=== PATIENT | male | born 1960 | race Caucasian/White ===

== ENCOUNTER 2016-08-06 15:05 | Emergency (ER) | payer MEDICAID ==
[2016-08-06 15:12] VITALS: TEMP 97.5
[2016-08-06] MEDS ORDERED: NS 1,000 ML IV ONE (15:25)
[2016-08-06 15:51] LABS: % IMMATURE GRANULYOCYTES 0.3 % (0.0-1.1); ABSOLUTE IMMATURE GRANULOCYTES 0.02 10^3/uL (0.00-0.10); ADD DIFF? NO; ADD MORPH? NO; ADD SCAN? NO; ATYPICAL LYMPHOCYTE FLAG 10 (0-99); FRAGMENT RBC FLAG 0 (0-99); HEMATOCRIT 43.3 % (40.0-51.0); HEMOGLOBIN 15.5 g/dL (13.7-17.5); LEFT SHIFT FLG 0 (0-99); LIPEMIA HEMOLYSIS FLAG 90 (0-99); MEAN CELL HEMOGLOBIN 31.5 pg (27.9-34.1); MEAN CELL HEMOGLOBIN CONCENTR. 35.8 g/dL (32.4-36.7); PLATELET CLUMPS FLAG 10 (0-99); PLATELET COUNT 221 10^3/uL (150-400); RED BLOOD CELL COUNT 4.92 10^6/uL (4.40-6.38); RED CELL DISTRIBUTION WIDTH 11.9 % (11.5-15.2)
[2016-08-06 15:52] LABS: COLOR YELLOW; LEUKOCYTE ESTERASE,URINE NEGATIVE (NEGATIVE); NITRITE,URINE NEGATIVE (NEGATIVE)
[2016-08-06 16:21] LABS: ANION GAP 11 mEq/L (8-16); CALCIUM 9.3 mg/dL (8.5-10.4); CARBON DIOXIDE 25 mEq/l (22-31); CHLORIDE 104 mEq/L (97-110); CREATININE 1.1 mg/dL (0.7-1.3); GLOMERULAR FILTRATION RATE > 60; GLUCOSE 73 mg/dL (70-100); POTASSIUM 4.4 mEq/L (3.5-5.2); SODIUM 140 mEq/L (134-144)
--- NOTE | 2016-08-06 16:28 | EDPHY ---
H & P Stated Complaint: l flank/l hip pain no trauma Time Seen by Provider: 08/06/16 15:25 HPI/ROS: CHIEF COMPLAINT: Left flank pain HISTORY OF PRESENT ILLNESS: 55-year-old male presents emergency department complaining of left flank pain for 1.5 months. Patient reports that is gradually getting worse. Describes the pain as a cramping and aching. Worse with movement, worse with bending over. Patient reports a history of a lumbar herniated disc, he reports this pain is different. He denies saddle anesthesias , no loss of control of his bowel or bladder, no fevers. He denies radiation of pain down into his buttock or leg. He denies nausea or vomiting, no abdominal pain. Patient reports he has been constipated over the last few days straining to have a bowel movement, last bowel movement was today. No difficulty urinating. REVIEW OF SYSTEMS: A comprehensive 10 point review of systems is otherwise negative aside from elements mentioned in the history of present illness. Source: Patient Exam Limitations: No limitations - Personal History Current Tetanus/Diphtheria Vaccine: Yes - Medical/Surgical History Hx Asthma: No Hx Chronic Respiratory Disease: No Hx Diabetes: No Hx Cardiac Disease: No Hx Renal Disease: No Hx Cirrhosis: No Hx Alcoholism: No Hx HIV/AIDS: No Hx Splenectomy or Spleen Trauma: No Other PMH: parkinsons - Social History Smoking Status: Never smoked - Physical Exam Exam: Physical Exam Gen: Alert and Oriented, NAD HEENT: PERRL, moist mucous membranes NECK: no meningismus CV: regular rate and regular rhythm PULM: CTAB, no wheezes ABDOMEN: soft, diffuse bilateral lower tenderness to palpation, BS present : normal rectal tone BACK: Mild left CVA tenderness NEURO: Neurologically grossly intact, 2/4 deep tendon reflexes patellar and Achilles bilaterally EXTREMITIES: normal appearing SKIN: no rash or break in skin on exposed skin PSYCH: answers questions appropriately. Constitutional: Initial Vital Signs Temperature (C) 36.4 C 08/06/16 15:09 Heart Rate 77 08/06/16 15:09 Respiratory Rate 18 08/06/16 15:09 Blood Pressure 108/69 08/06/16 15:09 O2 Sat (%) 94 08/06/16 15:09 O2 Delivery Mode Room Air Allergies/Adverse Reactions: No Known Allergies Allergy (Unverified 08/06/16 15:08) Home Medications: Medication Instructions Recorded Carbidopa-Levo 10-100 mg Odt 08/06/16 Hydrocodone/APAP 5/325 [Haines 1 tab PO Q4H PRN #7 tab 08/06/16 5/325] Lexapro 08/06/16 Methocarbamol [Robaxin-750] 750 - 1,500 mg PO QID PRN #20 08/06/16 tablet Medical Decision Making - Diagnostics Imaging: CT abdomen pelvis- Impression: Negative. Dictated By: Wilfrido Pena MD ED Course/Re-evaluation: 55-year-old male presents with left sided low back pain x1.5 months. On exam he had bilateral lower abdominal tenderness to palpation. CT abdomen pelvis and basic labs obtained. Patient has a normal CBC and chemistry panel, normal urinalysis, CT abdomen pelvis is normal. Patient likely has a musculoskeletal injury. He has no signs of cauda equina syndrome or spinal abscess. Patient will be discharged home, I have recommended ice or heat whichever feels better, gentle massage, gentle range of motion. He is discharged with a prescription for methocarbamol and Haines. He is given a primary care doctor to follow up with. Differential Diagnosis: The differential diagnosis for the patient's back pain included but was not limited to musculo-skeletal pain, epidural abscess, herniated disk, spinal fracture, cauda equina and intra-abdominal causes including urinary system. - Data Points Laboratory Results: Laboratory Results 08/06/16 15:32 08/06/16 15:32 Medications Given: Discontinued Medications Sodium Chloride (Ns) 1,000 mls @ 0 mls/hr IV ONCE ONE PRN Reason: Wide Open Stop: 08/06/16 15:26 Last Admin: 08/06/16 15:35 Dose: 1,000 mls Methocarbamol (Robaxin) 750 mg PO EDNOW ONE Stop: 08/06/16 17:56 Last Admin: 08/06/16 18:04 Dose: Not Given Departure - Departure Disposition: Home, Routine, Self-Care Clinical Impression: Back pain Qualifiers: Back pain location: low back pain Chronicity: acute Back pain laterality: left Sciatica presence: without sciatica Qualified Code(s): M54.5 - Low back pain Condition: Good Instructions: Acute Low Back Pain (ED), Lower Back Exercises (ED), Core Strengthening Exercises (ED) Additional Instructions: Take 600 mg of ibuprofen 3 times per day with food, takes methocarbamol every 8 hours as needed for muscle spasms. Take Haines for severe pain. Ice or heat whichever feels better, gentle range of motion exercises, core strengthening exercises daily. Return to the emergency department for any loss of control of your bowel or bladder, numbness to your groin, fevers. Referrals: [facility] [Other] - As per Instructions Jolynn Gill MD [Medical Doctor] - As per Instructions (Primary care doctor manager business continuity) Prescriptions: Hydrocodone/APAP 5/325 [Haines 5/325] 1 tab PO Q4H PRN #7 tab PRN Reason: Pain, Moderate Methocarbamol [Robaxin-750] 750 - 1,500 mg PO QID PRN #20 tablet PRN Reason: Spasms
[2016-08-06] MEDS ORDERED: IOPAMIDOL (ISOVUE-300) 100 ML BTL IV ONE (16:40)
[2016-08-06] MEDS ORDERED: METHOCARBAMOL 750 MG TAB PO ONE (17:55)
[2016-08-06 18:04] VITALS: BP 145/75; PULSE 75; RESP 16; O2SAT 98
== END 2016-08-06 18:03 | disposition home or self-care (01) ==
DX: M54.5 Low back pain (principal)
CPT/HCPCS: Q9967

== ENCOUNTER 2017-03-23 12:06 | Emergency (ER) | payer MEDICAID ==
[2017-03-23 12:13] VITALS: TEMP 97.5
--- NOTE | 2017-03-23 12:34 | CPEKG ---
Heart Rate: 69 RR Interval: 870 P-R Interval: 176 QRSD Interval: 84 QT Interval: 404 QTC Interval: 433 P [place]: 63 QRS [place]: 58 T Wave [place]: 70 EKG Severity - NORMAL ECG - EKG Impression: SINUS RHYTHM Electronically Signed By: Jose Maria Laurent 23-Mar-2017 12:54:49
[2017-03-23] MEDS ORDERED: HYOSCYAMINE SULFATE 0.125 MG TAB PO ONE (12:50)
[2017-03-23] MEDS ORDERED: MAG HYDROX/AL HYDROX/SIMETH 30 ML UDCUP PO ONE (12:50)
[2017-03-23] MEDS ORDERED: NS 1,000 ML IV ONE (12:50)
[2017-03-23] MEDS ORDERED: LIDOCAINE 2% VISCOUS 15 ML UDCUP PO ONE (12:50)
[2017-03-23] MEDS ORDERED: ASPIRIN 81 MG CHEWABLE TAB PO ONE (12:50)
--- NOTE | 2017-03-23 12:54 | EDPHY ---
H & P Stated Complaint: Chest Pain, L arm Pain, SOB, L flank pain Time Seen by Provider: 03/23/17 12:41 HPI/ROS: CHIEF COMPLAINT: Chest pain HISTORY OF PRESENT ILLNESS: Patient is a 56-year-old man with a history of Parkinson's disease who comes to the emergency department complaining of burning in his epigastric region. It has been present for 3-4 days. He also has mild shortness of breath or feeling like he is not getting enough air. No coughing. No fever. No trauma. He states that he does have a history of heartburn but usually resolves easily with Rolaids. He states that this feels different. No dizziness or lightheadedness. No recent illness. No history of cardiac disease. He also states that he injured his left elbow while lifting some pipes a few days ago. He states that he has some pain in that arm not in the shoulder region but only in the elbow and radiating down to the hand. He does not think that this is related. No diaphoresis. REVIEW OF SYSTEMS: Constitutional: denies: chills, fever, recent illness, recent injury EENTM: denies: blurred vision, double vision, nose congestion Respiratory: denies: cough, shortness of breath Cardiac: See HPI Gastrointestinal/Abdominal: denies: abdominal pain, diarrhea, nausea, vomiting, blood streaked stools Genitourinary: denies: dysuria, frequency, hematuria, pain Musculoskeletal: See HPI Skin: denies: lesions, rash, jaundice, bruising Neurological: denies: headache, numbness, paresthesia, tingling, dizziness, weakness Hematologic/Lymphatic: denies: blood clots, easy bleeding, easy bruising Immunologic/allergic: denies: HIV/AIDS, transplant EXAM: GENERAL: Well-appearing, well-nourished and in no acute distress. HEAD: Atraumatic, normocephalic. EYES: Pupils equal round and reactive to light, extraocular movements intact, sclera anicteric, conjunctiva are normal. ENT: TMs normal, nares patent, oropharynx clear without exudates. Moist mucous membranes. NECK: Normal range of motion, supple without lymphadenopathy or JVD. LUNGS: Breath sounds clear to auscultation bilaterally and equal. No wheezes rales or rhonchi. HEART: Regular rate and rhythm without murmurs, rubs or gallops. ABDOMEN: Soft, nontender, normoactive bowel sounds. No guarding, no rebound. No masses appreciated. BACK: No CVA tenderness, no spinal tenderness, step-offs or deformities EXTREMITIES: Normal range of motion, no pitting or edema. No clubbing or cyanosis. NEUROLOGICAL: Cranial nerves II through XII grossly intact. Normal speech, normal gait. 5/5 strength, normal movement in all extremities, normal sensation PSYCH: Normal mood, normal affect. SKIN: Warm, dry, normal turgor, no visible rashes or lesions. Source: Patient Exam Limitations: No limitations - Personal History Current Tetanus Diphtheria and Acellular Pertussis (TDAP): Yes - Medical/Surgical History Hx Asthma: No Hx Chronic Respiratory Disease: No Hx Diabetes: No Hx Cardiac Disease: No Hx Renal Disease: No Hx Cirrhosis: No Hx Alcoholism: No Hx HIV/AIDS: No Hx Splenectomy or Spleen Trauma: No Other PMH: parkinsons - Family History Significant Family History: No pertinent family hx - Social History Smoking Status: Never smoked Alcohol Use: Sober Drug Use: None Constitutional: Initial Vital Signs Temperature (C) 36.4 C 03/23/17 12:10 Heart Rate 68 03/23/17 12:10 Respiratory Rate 18 03/23/17 12:10 Blood Pressure 141/86 H 03/23/17 12:10 O2 Sat (%) 97 03/23/17 12:10 O2 Delivery Mode Room Air Allergies/Adverse Reactions: No Known Allergies Allergy (Verified 03/23/17 12:13) Home Medications: Medication Instructions Recorded Carbidopa-Levo 10-100 mg Odt 08/06/16 Lexapro 08/06/16 Famotidine [Pepcid 20 MG (OTC)] 20 mg PO BID #30 tab 03/23/17 Medical Decision Making - Diagnostics EKG Interpretation: An EKG obtained and was read and documented in trace view. Please see trace view for full reading and report. Sinus rhythm, no acute ischemic changes Imaging Results: Imaging Impressions Chest X-Ray 03/23/17 12:51 Impression: Lungs are clear. No acute process. ED Course/Re-evaluation: 1:45 p.m. the patient is feeling better. We discussed the test results. His troponin is negative in the face 3 days worth of symptoms. He is reassured by this and is eager to go home. I did offer observation and repeat troponin be he declines. He will follow up with his doctor at [facility]. I will start him on Pepcid in the meantime. I did evaluate his elbow. He has pain over the lateral elbow with supination and it radiates down to his ulnar aspect. I suspect that he has slight neuropathy and possibly a bursitis. He states that it hurt while he was using his arm to lift pipes a few days ago. I recommended anti-inflammatories, rest and compression. He was placed in an Jaswant bandage. Differential Diagnosis: Partial list of the Differential diagnosis considered include but were not limited to; peptic ulcer disease, bursitis, acute coronary disease and although unlikely based on the history and physical exam, I also considered arrhythmia, PE, pneumonia, bronchitis. I discussed these differential diagnoses and the plan with the patient as well as the usual and expected course. The patient understands that the diagnosis is provisional and that in medicine we are not always correct and that further workup is often warranted. Usual and customary warnings were given. All of the patient's questions were answered. The patient was instructed to return to the emergency department should the symptoms at all worsen or return, otherwise to followup with the physician as we discussed. - Data Points Laboratory Results: Laboratory Results 03/23/17 12:24 03/23/17 12:24 03/23/17 03/23/17 03/23/17 12:24 12:24 12:24 WBC 6.77 10^3/uL 10^3/uL (3.80-9.50) RBC 4.95 10^6/uL 10^6/uL (4.40-6.38) Hgb 16.0 g/dL g/dL (13.7-17.5) Hct 45.0 % % (40.0-51.0) MCV 90.9 fL fL (81.5-99.8) MCH 32.3 pg pg (27.9-34.1) MCHC 35.6 g/dL g/dL (32.4-36.7) RDW 11.9 % % (11.5-15.2) Plt Count 223 10^3/uL 10^3/uL (150-400) MPV 10.1 fL fL (8.7-11.7) Neut % (Auto) 53.8 % % (39.3-74.2) Lymph % (Auto) 27.6 % % (15.0-45.0) [place] % (Auto) 8.9 % % (4.5-13.0) Eos % (Auto) 8.4 % H % (0.6-7.6) Baso % (Auto) 0.9 % % (0.3-1.7) Nucleat RBC Rel Count 0.0 % % (0.0-0.2) Absolute Neuts (auto) 3.64 10^3/uL 10^3/uL (1.70-6.50) Absolute Lymphs (auto) 1.87 10^3/uL 10^3/uL (1.00-3.00) Absolute Monos (auto) 0.60 10^3/uL 10^3/uL (0.30-0.80) Absolute Eos (auto) 0.57 10^3/uL H 10^3/uL (0.03-0.40) Absolute Basos (auto) 0.06 10^3/uL 10^3/uL (0.02-0.10) Absolute Nucleated RBC 0.00 10^3/uL 10^3/uL (0-0.01) Immature Gran % 0.4 % % (0.0-1.1) Immature Gran # 0.03 10^3/uL 10^3/uL (0.00-0.10) PT 12.6 SEC SEC (12.0-15.0) INR 0.95 (0.83-1.16) APTT 29.2 SEC SEC (23.0-38.0) D-Dimer < 0.27 ug/mLFEU ug/mLFEU (0.00-0.50) Sodium 139 mEq/L mEq/L (134-144) Potassium 4.2 mEq/L mEq/L (3.5-5.2) Chloride 102 mEq/L mEq/L (97-110) Carbon Dioxide 26 mEq/l mEq/l (22-31) Anion Gap 11 mEq/L mEq/L (8-16) BUN 16 mg/dL mg/dL (7-23) Creatinine 1.1 mg/dL mg/dL (0.7-1.3) Estimated GFR > 60 Glucose 94 mg/dL mg/dL (70-100) Calcium 9.7 mg/dL mg/dL (8.5-10.4) Total Bilirubin 1.4 mg/dL mg/dL (0.1-1.4) Conjugated Bilirubin 0.3 mg/dL mg/dL (0.0-0.5) Unconjugated Bilirubin 1.1 mg/dL mg/dL (0.0-1.1) AST 25 IU/L IU/L (17-59) ALT 26 IU/L IU/L (21-72) Alkaline Phosphatase 50 IU/L IU/L (38-126) Troponin I < 0.012 ng/mL ng/mL (0.000-0.034) Total Protein 7.4 g/dL g/dL (6.3-8.2) Albumin 4.5 g/dL g/dL (3.5-5.0) Lipase 56 IU/L IU/L (23-300) Medications Given: Discontinued Medications Al Hydroxide/Mg Hydroxide (Maalox Susp) 30 ml PO ONCE ONE Stop: 03/23/17 12:51 Last Admin: 03/23/17 13:14 Dose: 30 ml Aspirin (Aspirin) 324 mg PO EDNOW ONE Stop: 03/23/17 12:51 Last Admin: 03/23/17 13:14 Dose: 324 mg Hyoscyamine Sulfate (Levsin, Hyomax-Sl) 0.25 mg PO ONCE ONE Stop: 03/23/17 12:51 Last Admin: 03/23/17 13:14 Dose: 0.25 mg Sodium Chloride (Ns) 1,000 mls @ 0 mls/hr IV EDNOW ONE; Wide Open PRN Reason: Protocol Stop: 03/23/17 12:51 Last Admin: 03/23/17 13:14 Dose: 1,000 mls Lidocaine (Lidocaine 2% Viscous) 15 ml PO ONCE ONE Stop: 03/23/17 12:51 Last Admin: 03/23/17 13:14 Dose: 15 ml Departure - Departure Disposition: Home, Routine, Self-Care Clinical Impression: Epigastric pain, Tendinitis of left elbow Condition: Fair Instructions: Tendinitis (ED), Epigastric Pain (ED) Referrals: NONE *PRIMARY CARE P,. [Primary Care Provider] - As per Instructions (Dr. De La Cruz within 72 hours as discussed.) Prescriptions: Famotidine [Pepcid 20 MG (OTC)] 20 mg PO BID #30 tab
[2017-03-23 12:57] LABS: % IMMATURE GRANULYOCYTES 0.4 % (0.0-1.1); ABSOLUTE IMMATURE GRANULOCYTES 0.03 10^3/uL (0.00-0.10); ADD DIFF? NO; ADD MORPH? NO; ADD SCAN? NO; ATYPICAL LYMPHOCYTE FLAG 0 (0-99); FRAGMENT RBC FLAG 0 (0-99); LEFT SHIFT FLG 0 (0-99); LIPEMIA HEMOLYSIS FLAG 90 (0-99); MEAN CELL HEMOGLOBIN 32.3 pg (27.9-34.1); MEAN CELL HEMOGLOBIN CONCENTR. 35.6 g/dL (32.4-36.7); MEAN CELL VOLUME 90.9 fL (81.5-99.8); MEAN PLATELET VOLUME 10.1 fL (8.7-11.7); PLATELET CLUMPS FLAG 0 (0-99); PLATELET COUNT 223 10^3/uL (150-400); RED BLOOD CELL COUNT 4.95 10^6/uL (4.40-6.38); RED CELL DISTRIBUTION WIDTH 11.9 % (11.5-15.2)
[2017-03-23 13:04] LABS: ALANINE AMINOTRANSFERASE 26 IU/L (21-72); ALBUMIN 4.5 g/dL (3.5-5.0); ALKALINE PHOSPHATASE 50 IU/L (38-126); ANION GAP 11 mEq/L (8-16); ASPARTATE AMINOTRANSFERASE 25 IU/L (17-59); BILIRUBIN,TOTAL 1.4 mg/dL (0.1-1.4); BILIRUBIN-CONJUGATED 0.3 mg/dL (0.0-0.5); BILIRUBIN-UNCONJUGATED 1.1 mg/dL (0.0-1.1); CALCIUM 9.7 mg/dL (8.5-10.4); CARBON DIOXIDE 26 mEq/l (22-31); CHLORIDE 102 mEq/L (97-110); CREATININE 1.1 mg/dL (0.7-1.3); GLOMERULAR FILTRATION RATE > 60; GLUCOSE 94 mg/dL (70-100); POTASSIUM 4.2 mEq/L (3.5-5.2); SODIUM 139 mEq/L (134-144); TOTAL PROTEIN 7.4 g/dL (6.3-8.2)
[2017-03-23 13:09] LABS: INR 0.95 (0.83-1.16); PROTIME(PATIENT) 12.6 SEC (12.0-15.0)
[2017-03-23 13:10] LABS: APTT 29.2 SEC (23.0-38.0)
[2017-03-23 13:15] LABS: TROPONIN I < 0.012 ng/mL (0.000-0.034)
[2017-03-23 14:13] VITALS: BP 123/67; PULSE 69; RESP 16; O2SAT 95
== END 2017-03-23 14:12 | disposition home or self-care (01) ==
DX: R10.13 Epigastric pain (principal); M77.8 Other enthesopathies, not elsewhere classified; G20 Parkinson's disease; E86.9 Volume depletion, unspecified